=== PATIENT | female | born 1945 | race Caucasian/White ===

== ENCOUNTER 2016-10-27 08:20 | Inpatient (IN) | payer MEDICARE ==
[2016-10-25 15:39] LABS: BLOOD UREA NITROGEN 23 mg/dL (7-18)
[2016-10-25 15:42] LABS: ASPARTATE AMINO TRANSFERASE 13 U/L (15-37)
[~2016-10-27] VITALS: Ht 168.9 cm; Wt 81.9 kg
[~2016-10-27 08:20] MED LIST: ACET-1600 PO; BIOT10TA PO; BIOT1CAP3 PO; CALC1CAP8 PO; CEFD300C37 PO; CELE200C PO; ESCI20TA PO; GABA300C10 PO; LEVO88TA4 PO; LISI-167 PO; MULT-717 PO; OXYC5TAB3 PO; PANT40TA5 PO; PIOG15TA4 PO; SIMV10TA3 PO; TRAM-28 PO; TRAM50TA2 PO; TURM500C7 PO; ZINC100T PO
[2016-10-27 08:56] VITALS: BP 102/65
[2016-10-27] MEDS ORDERED: LACTATED RINGERS 1,000 ML IV SCH (09:01)
[2016-10-27] MEDS ORDERED: LIDOCAINE 1%, 2ML ONE (09:09)
[2016-10-27] MEDS ORDERED: LIDOCAINE 1%, 2ML SQ PRN (09:30)
[2016-10-27] MEDS ORDERED: ENOXAPARIN 40 MG/0.4 ML SQ SCH (09:30)
[2016-10-27] MEDS ORDERED: INDOCYANINE GREEN 25 MG VIAL ONE (11:05)
[2016-10-27] MEDS ORDERED: BUPIVACAINE/PF-EPI 0.5% 1:200K ONE (11:05)
[2016-10-27] MEDS ORDERED: MIDAZOLAM 1 MG/ML, 2ML ONE (11:07)
[2016-10-27] MEDS ORDERED: BUPIVACAINE/PF-EPI 0.25% 1:200K ONE (11:07)
[2016-10-27] MEDS ORDERED: FENTANYL PF 250 MCG/5ML ONE (11:07)
[2016-10-27] MEDS ORDERED: BUPIVACAINE/PF 0.25% ONE (11:08)
[2016-10-27] MEDS ORDERED: BUPIVACAINE/PF 0.5% ONE (11:10)
[2016-10-27] MEDS ORDERED: KETOROLAC 30 MG/1 ML ONE (11:41)
[2016-10-27] MEDS ORDERED: ONDANSETRON 2MG/ML, 2ML ONE (11:41)
[2016-10-27] MEDS ORDERED: ROCURONIUM 10 MG/ML ONE (11:41)
[2016-10-27] MEDS ORDERED: DEXAMETHASONE 4 MG/ML, 5ML ONE (11:41)
[2016-10-27] MEDS ORDERED: KETAMINE 10 MG/ML, 20ML ONE (11:41)
[2016-10-27] MEDS ORDERED: PHENYLEPHRINE 10 MG/ML ONE ×2 (11:41)
[2016-10-27] MEDS ORDERED: PROPOFOL 10 MG/ML, 20ML ONE (11:41)
[2016-10-27] MEDS ORDERED: CEFOTETAN 2 GM ONE ×2 (11:41)
[2016-10-27] MEDS ORDERED: MEPERIDINE/PF 25MG/0.5ML IVPush PRN (12:30)
[2016-10-27] MEDS ORDERED: PROMETHAZINE 25 MG/ML, 1ML IV PRN (12:30)
[2016-10-27] MEDS ORDERED: hydrALAzine 20 MG/ML, 1ML IV PRN (12:30)
[2016-10-27] MEDS ORDERED: LABETALOL 5MG/ML, 20ML IV PRN (12:30)
[2016-10-27] MEDS ORDERED: ONDANSETRON 2MG/ML, 2ML IVPush PRN (12:30)
[2016-10-27] MEDS ORDERED: FENTANYL PF 100 MCG/2ML IV PRN (12:30)
[2016-10-27] MEDS ORDERED: ACETAMINOPHEN 325 MG TABLET PO PRN (12:30)
[2016-10-27] MEDS ORDERED: HYDROmorphone 1 MG/ML, 1ML IV PRN (12:30)
[2016-10-27] MEDS ORDERED: HYDROmorphone 2 MG/ML, 1ML ONE ×2 (13:16→16:36)
[2016-10-27] MEDS ORDERED: INSULIN REGULAR 100 UNITS/ML, 3ML VIAL SQ-INSULIN SCH (16:00)
[2016-10-27] MEDS ORDERED: ACETAMINOPHEN 650 MG/20.3 ML UDC ONE (16:36)
[2016-10-27] MEDS ORDERED: FENTANYL PF 100 MCG/2ML ONE (16:36)
[2016-10-27] MEDS ORDERED: OXYcodone 5 MG/5 ML ORAL.SOL UDC ONE (16:37)
[2016-10-27] MEDS ORDERED: DIPHENHYDRAMINE 50 MG/ML, 1ML IV PRN (19:00)
[2016-10-27] MEDS ORDERED: DIPHENHYDRAMINE 25 MG CAPSULE PO PRN (19:00)
[2016-10-27] MEDS ORDERED: ENTER SLIDING SCALE INSULIN IF ORDERED XX PRN (19:00)
[2016-10-27] MEDS ORDERED: ONDANSETRON 2MG/ML, 2ML IV PRN (19:00)
[2016-10-27] MEDS: POTASSIUM CHLORIDE 20 MEQ in D5%-0.45% NACL 1,000 ML IV SCH (19:00)
[2016-10-27] MEDS ORDERED: OXYcodone 5 MG/5 ML ORAL.SOL UDC PO PRN (19:30)
[2016-10-27] MEDS ORDERED: LORazepam 2 MG/ML, 1ML IV PRN (19:30)
[2016-10-27] MEDS ORDERED: LORazepam 1MG TABLET PO PRN (19:30)
[2016-10-27 20:32] VITALS: BP 131/61
[2016-10-27] MEDS: PIPERACILLIN/TAZO 3.375 GM in SODIUM CHLORIDE 0.9% 50 ML IV SCH (22:21)
[2016-10-27] MEDS: GABAPENTIN 300 MG CAPSULE PO SCH (23:50)
[2016-10-27] MEDS: SIMVASTATIN 10 MG TABLET PO SCH (23:50)
[2016-10-27] MEDS: HYDROmorphone 1 MG/ML, 1ML IV PRN (23:54)
[2016-10-28] MEDS: IBUPROFEN 600 MG TABLET PO SCH ×4 (00:05→21:38)
[2016-10-28] MEDS: INSULIN REGULAR, HUMAN 100 UNIT/ML 3ML VIAL LOW DOSE SS SQ-INSULIN SCH ×5 (00:06→20:30)
[2016-10-28 00:24] VITALS: BP 154/109
[2016-10-28] MEDS: PIPERACILLIN/TAZO 3.375 GM in SODIUM CHLORIDE 0.9% 50 ML IV SCH ×4 (01:54→20:09)
[2016-10-28] MEDS: OXYcodone 5 MG/5 ML ORAL.SOL UDC PO PRN ×3 (01:55→13:58)
[2016-10-28 05:16] VITALS: BP 133/64
[2016-10-28 05:23] LABS: BLOOD UREA NITROGEN 31 mg/dL (7-18)
[2016-10-28 06:30] VITALS: BP 125/58
[2016-10-28] MEDS: LEVOTHYROXINE 88 MCG TABLET PO SCH (06:36)
[2016-10-28] MEDS: PANTOPROZOLE 40MG TABLET PO SCH (07:45)
[2016-10-28] MEDS: HYDROmorphone 1 MG/ML, 1ML IV PRN (08:12)
[2016-10-28] MEDS: POTASSIUM CHLORIDE 20 MEQ in D5%-0.45% NACL 1,000 ML IV SCH ×2 (08:28→21:56)
[2016-10-28] MEDS: GABAPENTIN 300 MG CAPSULE PO SCH ×2 (11:45→21:38)
[2016-10-28] MEDS: CITALOPRAM 20 MG TABLET PO SCH (11:45)
[2016-10-28] MEDS: ENOXAPARIN 30 MG/0.3 ML SQ SCH (11:50)
[2016-10-28 13:03] VITALS: BP 118/52
[2016-10-28 18:25] VITALS: BP 113/58
[2016-10-28] MEDS: SIMVASTATIN 10 MG TABLET PO SCH (21:38)
[2016-10-29 02:04] VITALS: BP 96/55
[2016-10-29] MEDS: INSULIN REGULAR, HUMAN 100 UNIT/ML 3ML VIAL LOW DOSE SS SQ-INSULIN SCH ×4 (02:30→20:30)
[2016-10-29] MEDS: PIPERACILLIN/TAZO 3.375 GM in SODIUM CHLORIDE 0.9% 50 ML IV SCH ×4 (03:00→20:32)
[2016-10-29 05:07] LABS: BLOOD UREA NITROGEN 35 mg/dL (7-18)
[2016-10-29] MEDS: LEVOTHYROXINE 88 MCG TABLET PO SCH (06:28)
[2016-10-29 08:08] VITALS: BP 117/66
[2016-10-29] MEDS: ENOXAPARIN 30 MG/0.3 ML SQ SCH (08:14)
[2016-10-29] MEDS ORDERED: FLUCONAZOLE 200 MG/100 ML 100 ML IV SCH (09:00)
[2016-10-29] MEDS: GABAPENTIN 300 MG CAPSULE PO SCH ×2 (09:12→23:46)
[2016-10-29] MEDS: CITALOPRAM 20 MG TABLET PO SCH (09:13)
[2016-10-29] MEDS: IBUPROFEN 600 MG TABLET PO SCH ×3 (09:13→23:46)
[2016-10-29] MEDS: PANTOPROZOLE 40MG TABLET PO SCH (09:22)
[2016-10-29] MEDS: POTASSIUM CHLORIDE 20 MEQ in D5%-0.45% NACL 1,000 ML IV SCH (11:57)
[2016-10-29 12:58] VITALS: BP 125/71
[2016-10-29] MEDS: ACETAMINOPHEN 500 MG TABLET PO PRN (19:39)
[2016-10-29] MEDS: SIMVASTATIN 10 MG TABLET PO SCH (23:49)
[2016-10-30] MEDS: POTASSIUM CHLORIDE 20 MEQ in D5%-0.45% NACL 1,000 ML IV SCH ×2 (00:52→13:34)
[2016-10-30 02:00] VITALS: BP 125/73
[2016-10-30] MEDS: PIPERACILLIN/TAZO 3.375 GM in SODIUM CHLORIDE 0.9% 50 ML IV SCH ×3 (02:30→14:00)
[2016-10-30] MEDS: INSULIN REGULAR, HUMAN 100 UNIT/ML 3ML VIAL LOW DOSE SS SQ-INSULIN SCH ×4 (02:30→20:30)
[2016-10-30 04:29] VITALS: BP 121/68
[2016-10-30] MEDS: ACETAMINOPHEN 500 MG TABLET PO PRN ×2 (05:40→23:28)
[2016-10-30 05:56] LABS: BLOOD UREA NITROGEN 47 mg/dL (7-18)
[2016-10-30] MEDS: LEVOTHYROXINE 88 MCG TABLET PO SCH (06:24)
[2016-10-30 08:13] VITALS: BP 102/55
[2016-10-30] MEDS: GABAPENTIN 300 MG CAPSULE PO SCH ×2 (09:00→20:48)
[2016-10-30] MEDS: IBUPROFEN 600 MG TABLET PO SCH ×3 (09:20→20:48)
[2016-10-30] MEDS: CITALOPRAM 20 MG TABLET PO SCH (09:20)
[2016-10-30] MEDS: PANTOPROZOLE 40MG TABLET PO SCH (09:20)
[2016-10-30] MEDS ORDERED: FLUCONAZOLE 200 MG/100 ML 50 ML IV SCH (12:00)
[2016-10-30 13:01] VITALS: BP 125/59
[2016-10-30] MEDS: FLUCONAZOLE 100MG/50ML 100 MG in BAG 1 EACH IVPB SCH (13:34)
[2016-10-30] MEDS: PIPERACILLIN/TAZO(ZOSYN) 2.25 GM in NS 50 ML IVPB SCH ×2 (15:21→23:08)
[2016-10-30 19:30] VITALS: BP 106/51
[2016-10-30] MEDS: SIMVASTATIN 10 MG TABLET PO SCH (20:48)
[2016-10-31] MEDS: POTASSIUM CHLORIDE 20 MEQ in D5%-0.45% NACL 1,000 ML IV SCH ×3 (01:54→22:01)
[2016-10-31] MEDS: INSULIN REGULAR, HUMAN 100 UNIT/ML 3ML VIAL LOW DOSE SS SQ-INSULIN SCH ×3 (02:30→14:30)
[2016-10-31 03:12] VITALS: BP 112/58
[2016-10-31] MEDS: PIPERACILLIN/TAZO(ZOSYN) 2.25 GM in NS 50 ML IVPB SCH ×4 (05:18→23:16)
[2016-10-31 05:52] LABS: BLOOD UREA NITROGEN 44 mg/dL (7-18)
[2016-10-31] MEDS: LEVOTHYROXINE 88 MCG TABLET PO SCH (06:22)
[2016-10-31] MEDS: ACETAMINOPHEN 500 MG TABLET PO PRN ×2 (06:28→23:16)
[2016-10-31 06:56] VITALS: BP 130/68
[2016-10-31] MEDS: PANTOPROZOLE 40MG TABLET PO SCH (08:06)
[2016-10-31] MEDS: GABAPENTIN 300 MG CAPSULE PO SCH ×2 (09:39→22:33)
[2016-10-31] MEDS: IBUPROFEN 600 MG TABLET PO SCH ×3 (09:39→21:00)
[2016-10-31] MEDS: CITALOPRAM 20 MG TABLET PO SCH (09:39)
[2016-10-31] MEDS: FLUCONAZOLE 100MG/50ML 100 MG in BAG 1 EACH IVPB SCH (12:00)
[2016-10-31 14:36] VITALS: BP 144/62
[2016-10-31] MEDS: INSULIN REGULAR 100 UNITS/ML, 3ML VIAL SQ-INSULIN SCH ×2 (16:00→23:23)
[2016-10-31 20:26] VITALS: BP 143/69
[2016-10-31] MEDS: SIMVASTATIN 10 MG TABLET PO SCH (22:33)
[2016-11-01 02:20] VITALS: BP 138/71
[2016-11-01] MEDS: PIPERACILLIN/TAZO(ZOSYN) 2.25 GM in NS 50 ML IVPB SCH ×4 (05:21→23:39)
[2016-11-01] MEDS: ACETAMINOPHEN 500 MG TABLET PO PRN ×3 (05:23→21:10)
[2016-11-01 05:50] LABS: BLOOD UREA NITROGEN 39 mg/dL (7-18)
[2016-11-01] MEDS: LEVOTHYROXINE 88 MCG TABLET PO SCH (06:42)
[2016-11-01] MEDS: INSULIN REGULAR 100 UNITS/ML, 3ML VIAL SQ-INSULIN SCH (06:45)
[2016-11-01 07:17] VITALS: BP 137/73
[2016-11-01] MEDS: PANTOPROZOLE 40MG TABLET PO SCH (07:30)
[2016-11-01] MEDS: GABAPENTIN 300 MG CAPSULE PO SCH ×2 (08:42→21:10)
[2016-11-01] MEDS: CITALOPRAM 20 MG TABLET PO SCH (08:42)
[2016-11-01] MEDS: IBUPROFEN 600 MG TABLET PO SCH ×3 (08:43→21:00)
[2016-11-01] MEDS: FLUCONAZOLE 100MG/50ML 100 MG in BAG 1 EACH IVPB SCH (12:28)
[2016-11-01 14:30] VITALS: BP 168/80
[2016-11-01] MEDS: POTASSIUM CHLORIDE 20 MEQ in D5%-0.45% NACL 1,000 ML IV SCH (17:21)
[2016-11-01 19:05] VITALS: BP 143/69
[2016-11-01] MEDS: SIMVASTATIN 10 MG TABLET PO SCH (21:10)
[2016-11-02 00:56] VITALS: BP 157/77
[2016-11-02] MEDS: POTASSIUM CHLORIDE 20 MEQ in D5%-0.45% NACL 1,000 ML IV SCH (01:44)
[2016-11-02] MEDS: ACETAMINOPHEN 500 MG TABLET PO PRN ×3 (04:01→20:45)
[2016-11-02 06:17] LABS: BLOOD UREA NITROGEN 27 mg/dL (7-18)
[2016-11-02] MEDS: LEVOTHYROXINE 88 MCG TABLET PO SCH (06:44)
[2016-11-02] MEDS: PIPERACILLIN/TAZO(ZOSYN) 2.25 GM in NS 50 ML IVPB SCH ×3 (06:44→19:37)
[2016-11-02 07:58] VITALS: BP 134/74
[2016-11-02] MEDS: CITALOPRAM 20 MG TABLET PO SCH (08:53)
[2016-11-02] MEDS: PANTOPROZOLE 40MG TABLET PO SCH (08:54)
[2016-11-02] MEDS: GABAPENTIN 300 MG CAPSULE PO SCH ×2 (08:54→20:45)
[2016-11-02] MEDS: IBUPROFEN 600 MG TABLET PO SCH ×3 (09:00→20:40)
[2016-11-02] MEDS ORDERED: TRAM-28 PO (09:38)
[2016-11-02] MEDS ORDERED: AMOX1TAB64 PO (09:38)
[2016-11-02] MEDS: SODIUM CHLORIDE FLUSH 3ML SYRINGE IVF SCH ×2 (11:38→20:40)
[2016-11-02] MEDS: FLUCONAZOLE 100MG/50ML 100 MG in BAG 1 EACH IVPB SCH (12:09)
[2016-11-02 16:14] VITALS: BP 132/72
[2016-11-02 20:34] VITALS: BP 115/71
[2016-11-02] MEDS: SIMVASTATIN 10 MG TABLET PO SCH (20:45)
[2016-11-03] MEDS: PIPERACILLIN/TAZO(ZOSYN) 2.25 GM in NS 50 ML IVPB SCH (01:45)
[2016-11-03 02:58] VITALS: BP 134/65
[2016-11-03] MEDS: LEVOTHYROXINE 88 MCG TABLET PO SCH (05:42)
[2016-11-03 07:49] VITALS: BP 140/75
[2016-11-03] MEDS: SODIUM CHLORIDE FLUSH 3ML SYRINGE IVF SCH (08:16)
[2016-11-03] MEDS: PANTOPROZOLE 40MG TABLET PO SCH (08:17)
[2016-11-03] MEDS: ACETAMINOPHEN 500 MG TABLET PO PRN (08:17)
[2016-11-03] MEDS: IBUPROFEN 600 MG TABLET PO SCH (08:17)
[2016-11-03] MEDS: GABAPENTIN 300 MG CAPSULE PO SCH (08:17)
[2016-11-03] MEDS: CITALOPRAM 20 MG TABLET PO SCH (08:17)
[2016-11-03] MEDS: FLUCONAZOLE 100MG/50ML 100 MG in BAG 1 EACH IVPB SCH (12:00)
[2016-11-03 12:58] VITALS: BP 128/64
[2016-11-18] MEDS ORDERED: GABA600T2 PO (17:55)
[2016-11-18] MEDS ORDERED: ACET-1600 PO (17:55)
[2016-11-18] MEDS ORDERED: CELE200C PO (17:55)
[2016-11-18] MEDS ORDERED: GABA300C10 PO (17:55)
[2016-11-18] MEDS ORDERED: ZINC25LO PO (17:55)
[2016-11-23] MEDS ORDERED: CHOL400T2 PO (14:02)
[2016-11-23] MEDS ORDERED: FERR325T20 PO (14:02)
[2016-11-23] MEDS ORDERED: CEFD300C37 PO (14:02)
[2016-11-23] MEDS ORDERED: TRAM50TA2 PO (14:02)
[2016-11-23] MEDS ORDERED: METR500T PO (14:02)
[2016-11-23] MEDS ORDERED: LACT1CAP24 PO (14:11)
[2016-11-23] MEDS ORDERED: MAGN400T26 PO (14:15)
== END 2016-11-03 14:10 | disposition home health service (06) | DRG 333 ==
LOC: ORIP 08:20 → 4NOR 18:46 → DCLOUNGE 11-03 13:39
PROVIDERS: ADMIT Surgery; ATTEND Surgery
PROC: 07BB4ZZ Excision of Mesenteric Lymphatic, Percutaneous Endoscopic Approach (ICD-10-PCS; 2016-10-27)
PROC: 8E0W3CZ Robotic Assisted Procedure of Trunk Region, Percutaneous Approach (ICD-10-PCS; 2016-10-27)
PROC: 0T778DZ Dilation of Left Ureter with Intraluminal Device, Via Natural or Artificial Opening Endoscopic (ICD-10-PCS; principal; 2016-10-27 10:00)
PROC: 0DBP4ZZ Excision of Rectum, Percutaneous Endoscopic Approach (ICD-10-PCS; 2016-10-27 10:00)
DX: K57.20 Diverticulitis of large intestine with perforation and abscess without bleeding (principal); N32.1 Vesicointestinal fistula; E03.9 Hypothyroidism, unspecified; I10 Essential (primary) hypertension; K21.9 Gastro-esophageal reflux disease without esophagitis; E11.40 Type 2 diabetes mellitus with diabetic neuropathy, unspecified; E78.00 Pure hypercholesterolemia, unspecified; Z90.49 Acquired absence of other specified parts of digestive tract; Z90.710 Acquired absence of both cervix and uterus; Z88.8 Allergy status to other drugs, medicaments and biological substances; Z85.118 Personal history of other malignant neoplasm of bronchus and lung
CPT/HCPCS: 36415; 80048; 80053; 82040; 82962; 83036; 85014; 85018; 85025; 86850; 86900; 87070; 87075; 87077; 87102; 87106; 87186; 87205; 87324; 88304; 88307; 93005; C1729; J1100; J1170; J1650; J1815; J1885; J2250; J2405; J2543; J2704; J3010; J3480; J3490; C1758; C1760; J1450; J2370; S0074

== ENCOUNTER 2017-09-03 14:18 | Emergency (ER) | payer MEDICARE ==
[~2017-09-03] VITALS: Ht 167.6 cm; Wt 82.0 kg
[~2017-09-03 14:18] MED LIST changes: +AMOX1TAB64 PO; +CHOL400T2 PO; +FERR325T18 PO; +GABA600T2 PO; +LACT1CAP24 PO; +MAGN400T26 PO; +METR500T PO; -TRAM-28 PO; +TRAM-47 PO; +ZINC25LO PO
[2017-09-03] MEDS ORDERED: PANTOPRAZOLE 80 MG in SODIUM CHLORIDE 0.9% 50 ML IVPB ONE (14:42)
[2017-09-03] MEDS ORDERED: PANTOPRAZOLE 80 MG in SODIUM CHLORIDE 0.9% 100 ML IV SCH (14:42)
[2017-09-03] MEDS ORDERED: ONDANSETRON 2MG/ML, 2ML IVPush PRN (15:00)
[2017-09-03] MEDS ORDERED: HYDROcodone/APAP 5/325 TABLET ONE (15:19)
[2017-09-03 15:25] LABS: BASOPHILS # (AUTO) 0.04 x10^3/uL (0-0.1); BASOPHILS % (AUTO) 0 % (0-1); EOSINOPHILS # (AUTO) 0.08 x10^3/uL (0-0.4); EOSINOPHILS % (AUTO) 1 % (1-7); LYMPHOCYTES # (AUTO) 1.36 x10^3/uL (1-3.4); LYMPHOCYTES % (AUTO) 14 % (22-44); MD NO; MEAN CORPUSCULAR HGB CONC 32.9 g/dL (32.4-35.8); MEAN CORPUSCULAR VOLUME 97.2 fL (80-100); MONOCYTES # (AUTO) 0.55 x10^3/uL (0.2-0.8); MONOCYTES % (AUTO) 6 % (2-9); NEUTROPHILS # (AUTO) 7.42 x10^3/uL (1.8-6.8); NEUTROPHILS % (AUTO) 79 % (42-75); PLATELET COUNT 284 x10^3/uL (130-400); RED BLOOD COUNT 3.86 x10^6/uL (3.82-5.3); RED CELL DISTRIBUTION WIDTH 13.3 % (9.6-15.2)
[2017-09-03] MEDS ORDERED: HYDROcodone/APAP 5/325 TABLET PO ONE (15:30)
[2017-09-03 15:32] LABS: ANION GAP 8 mmol/L (5-15); CALCIUM 9.5 mg/dL (8.5-10.1); CHLORIDE 107 mmol/L (98-107)
[2017-09-03] MEDS ORDERED: DIAZEPAM 5 MG TABLET PO ONE (16:00)
[2017-09-03] MEDS ORDERED: DIAZEPAM 5 MG TABLET ONE (16:03)
[2017-09-03] MEDS ORDERED: DEXAMETHASONE 4 MG TABLET ONE (17:51)
[2017-09-03 17:57] VITALS: BP 140/70
[2017-09-03] MEDS ORDERED: DEXAMETHASONE 4 MG/ML, 1ML PO ONE (18:00)
[2017-09-03 18:01] LABS: MICROSCOPIC NOT IND
[2017-09-03 18:04] LABS: CULTURE INDICATED? NO
== END 2017-09-03 18:01 | disposition home or self-care (01) ==
LOC: ED 17:04
DX: M54.41 Lumbago with sciatica, right side (principal); M51.26 Other intervertebral disc displacement, lumbar region; C34.90 Malignant neoplasm of unspecified part of unspecified bronchus or lung; I10 Essential (primary) hypertension; M54.16 Radiculopathy, lumbar region
CPT/HCPCS: 36415; 72148; 80048; 81003; 85025; 99285; J1100

== ENCOUNTER 2017-09-20 16:41 | Inpatient (IN) | payer MEDICARE ==
[~2017-09-20] VITALS: Ht 172.7 cm; Wt 90.0 kg
[2017-09-20] MEDS: ENOXAPARIN 40 MG/0.4 ML SQ SCH (17:30)
[2017-09-20] MEDS ORDERED: hydrALAzine 20 MG/ML, 1ML IVPush PRN (17:30)
[2017-09-20] MEDS ORDERED: LABETALOL 5MG/ML, 20ML IVPush PRN (17:30)
[2017-09-20 17:56] LABS: BASOPHILS # (AUTO) 0.01 x10^3/uL (0-0.1); BASOPHILS % (AUTO) 0 % (0-1); EOSINOPHILS # (AUTO) 0.04 x10^3/uL (0-0.4); EOSINOPHILS % (AUTO) 0 % (1-7); LYMPHOCYTES # (AUTO) 1.31 x10^3/uL (1-3.4); LYMPHOCYTES % (AUTO) 11 % (22-44); MD NO; MEAN CORPUSCULAR HEMOGLOBIN 32.9 pg (27.0-34.8); MEAN CORPUSCULAR HGB CONC 33.7 g/dL (32.4-35.8); MEAN CORPUSCULAR VOLUME 97.4 fL (80-100); MEAN PLATELET VOLUME 8.6 fL (7.4-10.4); MONOCYTES # (AUTO) 0.61 x10^3/uL (0.2-0.8); MONOCYTES % (AUTO) 5 % (2-9); NEUTROPHILS # (AUTO) 9.52 x10^3/uL (1.8-6.8); NEUTROPHILS % (AUTO) 83 % (42-75); PLATELET COUNT 221 x10^3/uL (130-400); RED BLOOD COUNT 4.21 x10^6/uL (3.82-5.3); RED CELL DISTRIBUTION WIDTH 13.3 % (9.6-15.2)
[2017-09-20] MEDS ORDERED: ACETAMINOPHEN 325 MG TABLET PO PRN (18:00)
[2017-09-20] MEDS ORDERED: METHOCARBAMOL 750 MG TABLET PO ONE (18:00)
[2017-09-20] MEDS ORDERED: SODIUM CHLORIDE FLUSH 10ML SYR IVF ONE (18:00)
[2017-09-20 18:06] LABS: ALBUMIN 4.6 g/dL (3.4-5.0); ANION GAP 11 mmol/L (5-15); CHLORIDE 106 mmol/L (98-107); CREATININE 1.22 mg/dL (0.55-1.02)
[2017-09-20 19:32] VITALS: BP 140/77
[2017-09-20] MEDS: MAGNESIUM OXIDE 400 MG TABLET PO SCH (20:48)
[2017-09-20] MEDS: CALCIUM/VITAMIN D3 250-125 TABLET PO SCH (20:48)
[2017-09-20] MEDS: CHOLECALCIFEROL 400 UNITS TABLET PO SCH (20:48)
[2017-09-20] MEDS: SIMVASTATIN 10 MG TABLET PO SCH (20:48)
[2017-09-20] MEDS: LACTOBACILLUS CHEW TABLET PO SCH (20:48)
[2017-09-21 01:33] VITALS: BP 114/67
[2017-09-21] MEDS: LEVOTHYROXINE 88 MCG TABLET PO SCH (05:04)
[2017-09-21 05:17] LABS: BASOPHILS # (AUTO) 0.03 x10^3/uL (0-0.1); BASOPHILS % (AUTO) 0 % (0-1); EOSINOPHILS % (AUTO) 1 % (1-7); LYMPHOCYTES # (AUTO) 2.33 x10^3/uL (1-3.4); LYMPHOCYTES % (AUTO) 24 % (22-44); MD NO; MEAN CORPUSCULAR HEMOGLOBIN 32.6 pg (27.0-34.8); MEAN CORPUSCULAR HGB CONC 33.6 g/dL (32.4-35.8); MEAN CORPUSCULAR VOLUME 96.8 fL (80-100); MEAN PLATELET VOLUME 8.8 fL (7.4-10.4); MONOCYTES % (AUTO) 9 % (2-9); NEUTROPHILS # (AUTO) 6.24 x10^3/uL (1.8-6.8); NEUTROPHILS % (AUTO) 65 % (42-75); PLATELET COUNT 230 x10^3/uL (130-400); RED BLOOD COUNT 4.06 x10^6/uL (3.82-5.3); RED CELL DISTRIBUTION WIDTH 13.4 % (9.6-15.2)
[2017-09-21 05:24] LABS: ANION GAP 6 mmol/L (5-15); CALCIUM 10.2 mg/dL (8.5-10.1); CHLORIDE 106 mmol/L (98-107); CREATININE 1.45 mg/dL (0.55-1.02)
[2017-09-21 06:53] VITALS: BP 114/70
[2017-09-21] MEDS: PANTOPROZOLE 40MG TABLET PO SCH (08:08)
[2017-09-21] MEDS: MAGNESIUM OXIDE 400 MG TABLET PO SCH ×2 (08:08→20:34)
[2017-09-21] MEDS: CITALOPRAM 20 MG TABLET PO SCH (08:08)
[2017-09-21] MEDS: LACTOBACILLUS CHEW TABLET PO SCH ×3 (08:08→20:34)
[2017-09-21] MEDS: CHOLECALCIFEROL 400 UNITS TABLET PO SCH ×2 (08:08→20:34)
[2017-09-21] MEDS: CALCIUM/VITAMIN D3 250-125 TABLET PO SCH (08:09)
[2017-09-21] MEDS ORDERED: LISINOPRIL 5 MG TABLET PO SCH (09:00)
[2017-09-21] MEDS ORDERED: GABAPENTIN 300 MG CAPSULE PO SCH (09:00)
[2017-09-21 12:59] VITALS: BP 99/59
[2017-09-21] MEDS: SODIUM CHLORIDE 0.9% 1,000 ML IV SCH (16:39)
[2017-09-21] MEDS: ENOXAPARIN 40 MG/0.4 ML SQ SCH (17:45)
[2017-09-21 18:58] VITALS: BP 135/65
[2017-09-21] MEDS: SIMVASTATIN 10 MG TABLET PO SCH (20:34)
[2017-09-22] MEDS: SODIUM CHLORIDE 0.9% 1,000 ML IV SCH ×3 (00:58→23:04)
[2017-09-22 02:14] VITALS: BP 88/59
[2017-09-22 02:54] VITALS: BP 91/56
[2017-09-22] MEDS: LEVOTHYROXINE 88 MCG TABLET PO SCH (05:02)
[2017-09-22 05:10] LABS: BASOPHILS # (AUTO) 0.01 x10^3/uL (0-0.1); BASOPHILS % (AUTO) 0 % (0-1); EOSINOPHILS # (AUTO) 0.15 x10^3/uL (0-0.4); EOSINOPHILS % (AUTO) 2 % (1-7); LYMPHOCYTES % (AUTO) 25 % (22-44); MD NO; MEAN CORPUSCULAR HEMOGLOBIN 32.1 pg (27.0-34.8); MEAN CORPUSCULAR VOLUME 97.4 fL (80-100); MEAN PLATELET VOLUME 8.9 fL (7.4-10.4); MONOCYTES # (AUTO) 1.01 x10^3/uL (0.2-0.8); MONOCYTES % (AUTO) 10 % (2-9); NEUTROPHILS # (AUTO) 6.48 x10^3/uL (1.8-6.8); NEUTROPHILS % (AUTO) 64 % (42-75); PLATELET COUNT 228 x10^3/uL (130-400); RED BLOOD COUNT 3.85 x10^6/uL (3.82-5.3); RED CELL DISTRIBUTION WIDTH 14.5 % (9.6-15.2)
[2017-09-22 05:20] LABS: ANION GAP 7 mmol/L (5-15); CHLORIDE 105 mmol/L (98-107); CREATININE 2.64 mg/dL (0.55-1.02)
[2017-09-22 07:52] VITALS: BP 139/71
[2017-09-22] MEDS ORDERED: PHARMACY MAY ADJ FOR RENAL FX MC PRN (09:00)
[2017-09-22] MEDS: CITALOPRAM 20 MG TABLET PO SCH (09:23)
[2017-09-22] MEDS: MAGNESIUM OXIDE 400 MG TABLET PO SCH ×2 (09:24→21:15)
[2017-09-22] MEDS: LACTOBACILLUS CHEW TABLET PO SCH ×3 (09:24→21:15)
[2017-09-22] MEDS: GABAPENTIN 300 MG CAPSULE PO SCH ×2 (09:25→21:15)
[2017-09-22] MEDS: PANTOPROZOLE 40MG TABLET PO SCH (09:26)
[2017-09-22] MEDS: CHOLECALCIFEROL 400 UNITS TABLET PO SCH ×2 (09:27→21:15)
[2017-09-22 11:48] LABS: MICROSCOPIC INDICATED
[2017-09-22 12:23] LABS: CULTURE INDICATED? YES
[2017-09-22 12:25] VITALS: BP 132/73
[2017-09-22] MEDS: CEFTRIAXONE PMX 1GM/50ML 50 ML IV SCH (14:39)
[2017-09-22 18:33] LABS: INTERNATIONAL NORMALIZED RATIO 1.08 (0.93-1.1); PROTHROMBIN TIME 11.1 Seconds (9.6-11.5)
[2017-09-22 18:40] VITALS: BP 103/65
[2017-09-23 01:38] VITALS: BP 137/81
[2017-09-23] MEDS: LEVOTHYROXINE 88 MCG TABLET PO SCH (04:42)
[2017-09-23] MEDS: SODIUM CHLORIDE 0.9% 1,000 ML IV SCH ×3 (05:37→20:48)
[2017-09-23 05:54] LABS: BASOPHILS % (AUTO) 0 % (0-1); EOSINOPHILS % (AUTO) 2 % (1-7); LYMPHOCYTES # (AUTO) 1.82 x10^3/uL (1-3.4); LYMPHOCYTES % (AUTO) 20 % (22-44); MD NO; MEAN CORPUSCULAR HEMOGLOBIN 32.8 pg (27.0-34.8); MEAN CORPUSCULAR HGB CONC 33.3 g/dL (32.4-35.8); MEAN CORPUSCULAR VOLUME 98.4 fL (80-100); MEAN PLATELET VOLUME 9.2 fL (7.4-10.4); MONOCYTES # (AUTO) 1.09 x10^3/uL (0.2-0.8); MONOCYTES % (AUTO) 12 % (2-9); NEUTROPHILS # (AUTO) 6.19 x10^3/uL (1.8-6.8); NEUTROPHILS % (AUTO) 67 % (42-75); PLATELET COUNT 196 x10^3/uL (130-400); RED BLOOD COUNT 3.52 x10^6/uL (3.82-5.3); RED CELL DISTRIBUTION WIDTH 13.4 % (9.6-15.2)
[2017-09-23 05:58] LABS: ANION GAP 7 mmol/L (5-15); CALCIUM 9.1 mg/dL (8.5-10.1); CHLORIDE 107 mmol/L (98-107); CREATININE 1.62 mg/dL (0.55-1.02)
[2017-09-23 06:40] VITALS: BP 137/80
[2017-09-23] MEDS: PANTOPROZOLE 40MG TABLET PO SCH (09:42)
[2017-09-23] MEDS: ERGOCALCIFEROL 50,000 UNIT CAPSULE PO SCH (09:42)
[2017-09-23] MEDS: GABAPENTIN 300 MG CAPSULE PO SCH ×2 (09:43→20:48)
[2017-09-23] MEDS: LACTOBACILLUS CHEW TABLET PO SCH ×3 (09:43→20:48)
[2017-09-23] MEDS: CITALOPRAM 20 MG TABLET PO SCH (09:43)
[2017-09-23] MEDS: MAGNESIUM OXIDE 400 MG TABLET PO SCH ×2 (09:44→20:48)
[2017-09-23] MEDS: CEFTRIAXONE PMX 1GM/50ML 50 ML IV SCH (14:41)
[2017-09-23 14:45] VITALS: BP 127/61
[2017-09-23 18:24] VITALS: BP 120/72
[2017-09-24 04:26] VITALS: BP 148/75
[2017-09-24] MEDS: SODIUM CHLORIDE 0.9% 1,000 ML IV SCH ×3 (04:49→12:12)
[2017-09-24] MEDS: LEVOTHYROXINE 88 MCG TABLET PO SCH (05:36)
[2017-09-24 05:53] LABS: BASOPHILS # (AUTO) 0.03 x10^3/uL (0-0.1); BASOPHILS % (AUTO) 0 % (0-1); EOSINOPHILS % (AUTO) 3 % (1-7); LYMPHOCYTES # (AUTO) 1.68 x10^3/uL (1-3.4); LYMPHOCYTES % (AUTO) 23 % (22-44); MD NO; MEAN CORPUSCULAR HEMOGLOBIN 32.5 pg (27.0-34.8); MEAN CORPUSCULAR HGB CONC 33.3 g/dL (32.4-35.8); MEAN CORPUSCULAR VOLUME 97.7 fL (80-100); MEAN PLATELET VOLUME 9.1 fL (7.4-10.4); MONOCYTES % (AUTO) 14 % (2-9); NEUTROPHILS % (AUTO) 60 % (42-75); PLATELET COUNT 206 x10^3/uL (130-400); RED BLOOD COUNT 3.45 x10^6/uL (3.82-5.3); RED CELL DISTRIBUTION WIDTH 13.3 % (9.6-15.2)
[2017-09-24 05:56] LABS: CHLORIDE 109 mmol/L (98-107)
[2017-09-24 06:22] LABS: ALANINE AMINOTRANSFERASE 12 U/L (12-78); ALBUMIN 3.4 g/dL (3.4-5.0); ALKALINE PHOSPHATASE 54 U/L (45-117); ANION GAP 9 mmol/L (5-15); BILIRUBIN,TOTAL 0.8 mg/dL (0.2-1.0); CALCIUM 9.4 mg/dL (8.5-10.1); CREATININE 1.12 mg/dL (0.55-1.02); TOTAL PROTEIN 6.9 g/dL (6.4-8.2)
[2017-09-24 06:46] VITALS: BP 145/66
[2017-09-24] MEDS: LACTOBACILLUS CHEW TABLET PO SCH ×3 (09:31→22:03)
[2017-09-24] MEDS: CITALOPRAM 20 MG TABLET PO SCH (09:31)
[2017-09-24] MEDS: PANTOPROZOLE 40MG TABLET PO SCH (09:31)
[2017-09-24] MEDS: GABAPENTIN 300 MG CAPSULE PO SCH ×2 (09:31→22:03)
[2017-09-24] MEDS: MAGNESIUM OXIDE 400 MG TABLET PO SCH ×2 (09:34→22:03)
[2017-09-24 13:10] VITALS: BP 125/65
[2017-09-24] MEDS: CEFTRIAXONE PMX 1GM/50ML 50 ML IV SCH (14:43)
[2017-09-24] MEDS ORDERED: ENOXAPARIN 30 MG/0.3 ML SQ SCH (16:00)
[2017-09-24] MEDS ORDERED: MAGNESIUM SULFATE PMX 4GM/100M 100 ML IV ONE (16:00)
[2017-09-24] MEDS ORDERED: POTASSIUM PHOSPHATE 44 MEQ in SODIUM CHLORIDE 0.9% 500 ML IV ONE (16:00)
[2017-09-24 19:56] VITALS: BP 129/77
[2017-09-25 01:58] VITALS: BP 125/73
[2017-09-25 05:41] LABS: ALANINE AMINOTRANSFERASE 12 U/L (12-78); ALBUMIN 3.3 g/dL (3.4-5.0); ANION GAP 7 mmol/L (5-15); CALCIUM 9.2 mg/dL (8.5-10.1); CHLORIDE 109 mmol/L (98-107); CREATININE 1.04 mg/dL (0.55-1.02)
[2017-09-25 05:43] LABS: ALKALINE PHOSPHATASE 63 U/L (45-117); BILIRUBIN,TOTAL 0.4 mg/dL (0.2-1.0); TOTAL PROTEIN 7.2 g/dL (6.4-8.2)
[2017-09-25] MEDS: LEVOTHYROXINE 88 MCG TABLET PO SCH (06:26)
[2017-09-25 07:05] VITALS: BP 142/71
[2017-09-25] MEDS: PANTOPROZOLE 40MG TABLET PO SCH (08:13)
[2017-09-25] MEDS: LACTOBACILLUS CHEW TABLET PO SCH ×3 (08:13→22:25)
[2017-09-25] MEDS: GABAPENTIN 300 MG CAPSULE PO SCH ×2 (08:13→22:25)
[2017-09-25] MEDS: CITALOPRAM 20 MG TABLET PO SCH (08:13)
[2017-09-25] MEDS: MAGNESIUM OXIDE 400 MG TABLET PO SCH ×2 (08:14→22:25)
[2017-09-25] MEDS: SODIUM CHLORIDE 0.9% 1,000 ML IV SCH ×3 (10:04→17:55)
[2017-09-25 12:33] VITALS: BP 123/61
[2017-09-25] MEDS: CEFTRIAXONE PMX 1GM/50ML 50 ML IV SCH (14:03)
[2017-09-25] MEDS: ENOXAPARIN 40 MG/0.4 ML SQ SCH (15:34)
[2017-09-25 20:07] VITALS: BP 124/60
[2017-09-26] MEDS: SODIUM CHLORIDE 0.9% 1,000 ML IV SCH ×4 (00:01→21:18)
[2017-09-26 01:09] VITALS: BP 134/69
[2017-09-26 05:38] LABS: BASOPHILS # (AUTO) 0.02 x10^3/uL (0-0.1); BASOPHILS % (AUTO) 0 % (0-1); EOSINOPHILS # (AUTO) 0.19 x10^3/uL (0-0.4); EOSINOPHILS % (AUTO) 2 % (1-7); LYMPHOCYTES % (AUTO) 24 % (22-44); MD NO; MEAN CORPUSCULAR HEMOGLOBIN 32.4 pg (27.0-34.8); MEAN CORPUSCULAR HGB CONC 33.5 g/dL (32.4-35.8); MEAN CORPUSCULAR VOLUME 96.8 fL (80-100); MEAN PLATELET VOLUME 8.7 fL (7.4-10.4); MONOCYTES # (AUTO) 1.01 x10^3/uL (0.2-0.8); MONOCYTES % (AUTO) 13 % (2-9); NEUTROPHILS # (AUTO) 4.84 x10^3/uL (1.8-6.8); NEUTROPHILS % (AUTO) 61 % (42-75); PLATELET COUNT 243 x10^3/uL (130-400); RED BLOOD COUNT 3.31 x10^6/uL (3.82-5.3); RED CELL DISTRIBUTION WIDTH 13.3 % (9.6-15.2)
[2017-09-26 05:50] LABS: CHLORIDE 107 mmol/L (98-107)
[2017-09-26 05:59] LABS: ALANINE AMINOTRANSFERASE 13 U/L (12-78); ALBUMIN 3.3 g/dL (3.4-5.0); ALKALINE PHOSPHATASE 61 U/L (45-117); ANION GAP 7 mmol/L (5-15); BILIRUBIN,TOTAL 0.7 mg/dL (0.2-1.0); TOTAL PROTEIN 6.9 g/dL (6.4-8.2)
[2017-09-26] MEDS: LEVOTHYROXINE 88 MCG TABLET PO SCH (06:22)
[2017-09-26 07:51] VITALS: BP 178/65
[2017-09-26] MEDS: LACTOBACILLUS CHEW TABLET PO SCH ×3 (08:09→21:18)
[2017-09-26] MEDS: GABAPENTIN 300 MG CAPSULE PO SCH ×2 (08:09→21:18)
[2017-09-26] MEDS: PANTOPROZOLE 40MG TABLET PO SCH (08:09)
[2017-09-26] MEDS: CITALOPRAM 20 MG TABLET PO SCH (08:09)
[2017-09-26] MEDS: MAGNESIUM OXIDE 400 MG TABLET PO SCH ×2 (08:09→21:18)
[2017-09-26 08:53] VITALS: BP 146/67
[2017-09-26 12:14] VITALS: BP 120/70
[2017-09-26] MEDS: CEFTRIAXONE PMX 1GM/50ML 50 ML IV SCH (14:16)
[2017-09-26] MEDS: ENOXAPARIN 40 MG/0.4 ML SQ SCH (15:27)
[2017-09-26 20:37] VITALS: BP 151/67
[2017-09-27 01:44] VITALS: BP 115/75
[2017-09-27] MEDS: SODIUM CHLORIDE 0.9% 1,000 ML IV SCH ×4 (04:11→22:24)
[2017-09-27 05:19] LABS: BASOPHILS # (AUTO) 0.03 x10^3/uL (0-0.1); BASOPHILS % (AUTO) 1 % (0-1); EOSINOPHILS # (AUTO) 0.24 x10^3/uL (0-0.4); EOSINOPHILS % (AUTO) 3 % (1-7); LYMPHOCYTES # (AUTO) 1.59 x10^3/uL (1-3.4); LYMPHOCYTES % (AUTO) 21 % (22-44); MD NO; MEAN CORPUSCULAR HEMOGLOBIN 32.6 pg (27.0-34.8); MEAN CORPUSCULAR HGB CONC 33.6 g/dL (32.4-35.8); MEAN PLATELET VOLUME 8.5 fL (7.4-10.4); MONOCYTES # (AUTO) 0.91 x10^3/uL (0.2-0.8); MONOCYTES % (AUTO) 12 % (2-9); NEUTROPHILS # (AUTO) 4.86 x10^3/uL (1.8-6.8); NEUTROPHILS % (AUTO) 64 % (42-75); PLATELET COUNT 257 x10^3/uL (130-400); RED CELL DISTRIBUTION WIDTH 13.4 % (9.6-15.2)
[2017-09-27 05:25] LABS: INTERNATIONAL NORMALIZED RATIO 1.11 (0.93-1.1); PROTHROMBIN TIME 11.4 Seconds (9.6-11.5)
[2017-09-27 05:34] LABS: ANION GAP 9 mmol/L (5-15); CALCIUM 9.3 mg/dL (8.5-10.1); CHLORIDE 109 mmol/L (98-107)
[2017-09-27 05:36] LABS: CREATININE 0.91 mg/dL (0.55-1.02)
[2017-09-27] MEDS: LEVOTHYROXINE 88 MCG TABLET PO SCH (06:14)
[2017-09-27 06:55] VITALS: BP 158/83
[2017-09-27] MEDS: LACTOBACILLUS CHEW TABLET PO SCH ×3 (08:15→21:45)
[2017-09-27] MEDS: PANTOPROZOLE 40MG TABLET PO SCH (08:15)
[2017-09-27] MEDS: GABAPENTIN 300 MG CAPSULE PO SCH ×2 (08:15→21:45)
[2017-09-27] MEDS: CITALOPRAM 20 MG TABLET PO SCH (08:15)
[2017-09-27] MEDS: MAGNESIUM OXIDE 400 MG TABLET PO SCH ×2 (08:15→21:45)
[2017-09-27 12:55] VITALS: BP 127/73
[2017-09-27 13:50] VITALS: BP 132/79
[2017-09-27] MEDS: CEFTRIAXONE PMX 1GM/50ML 50 ML IV SCH (14:30)
[2017-09-27] MEDS ORDERED: THROMBIN 5,000 UNIT VIAL TP ONE (14:43)
[2017-09-27] MEDS ORDERED: BUPIVACAINE/PF 0.5% ONE (14:43)
[2017-09-27] MEDS ORDERED: VANCOMYCIN 1,000 MG ONE (14:43)
[2017-09-27] MEDS ORDERED: EPINEPHRINE 1 MG/ML, 1ML ONE (14:44)
[2017-09-27] MEDS ORDERED: BACITRACIN 50,000 UNIT ONE (14:44)
[2017-09-27] MEDS ORDERED: MIDAZOLAM 1 MG/ML, 2ML ONE (17:20)
[2017-09-27] MEDS ORDERED: FENTANYL PF 250 MCG/5ML ONE (17:24)
[2017-09-27] MEDS ORDERED: PROPOFOL 150 ML ONE (17:24)
[2017-09-27] MEDS ORDERED: PROPOFOL 10 MG/ML, 50ML ONE (17:32)
[2017-09-27] MEDS ORDERED: METOPROLOL 1 MG/ML, 5ML IV PRN (18:30)
[2017-09-27] MEDS ORDERED: ALBUTEROL SULFATE 2.5 MG/3 ML NPPB PRN (18:30)
[2017-09-27] MEDS ORDERED: hydrALAzine 20 MG/ML, 1ML IV PRN (18:30)
[2017-09-27] MEDS ORDERED: ACETAMINOPHEN 325 MG TABLET PO PRN (18:30)
[2017-09-27] MEDS ORDERED: OXYcodone 5 MG/5 ML ORAL.SOL UDC PO PRN (18:30)
[2017-09-27] MEDS ORDERED: LABETALOL 5MG/ML, 20ML IV PRN (18:30)
[2017-09-27] MEDS ORDERED: EPHEDRINE 50 MG/ML, 1ML IVPush PRN (18:30)
[2017-09-27] MEDS ORDERED: HYDROmorphone 1 MG/ML, 1ML IV PRN (18:30)
[2017-09-27] MEDS ORDERED: morphine SULFATE 10 MG/ML, 1ML IV PRN (18:30)
[2017-09-27] MEDS ORDERED: DIAZEPAM 5 MG/ML, 2ML IVPush PRN (18:30)
[2017-09-27] MEDS ORDERED: ONDANSETRON 2MG/ML, 2ML IVPush PRN (18:30)
[2017-09-27] MEDS ORDERED: SUCCINYLCHOLINE 20 MG/ML, 10ML ONE (19:43)
[2017-09-27] MEDS ORDERED: CEFAZOLIN 1,000 MG ONE ×2 (19:43)
[2017-09-27] MEDS ORDERED: ONDANSETRON 2MG/ML, 2ML ONE (19:43)
[2017-09-27] MEDS ORDERED: DEXAMETHASONE 4 MG/ML, 1ML ONE ×2 (19:43)
[2017-09-27] MEDS ORDERED: HYDROcodone/APAP 5/325 TABLET PO PRN (20:00)
[2017-09-27] MEDS ORDERED: HYDROcodone/APAP 10/325 MG TABLET PO PRN (20:00)
[2017-09-27] MEDS ORDERED: morphine SULFATE 10 MG/ML, 1ML IVPush PRN (20:00)
[2017-09-27] MEDS ORDERED: PHARMACY MAY ADJ FOR RENAL FX MC PRN (20:00)
[2017-09-27] MEDS ORDERED: OXYcodone 5 MG/5 ML ORAL.SOL UDC ONE (20:19)
[2017-09-27] MEDS ORDERED: ACETAMINOPHEN 650 MG/20.3 ML UDC ONE (20:19)
[2017-09-27] MEDS ORDERED: FENTANYL PF 100 MCG/2ML ONE (20:19)
[2017-09-27] MEDS: FENTANYL PF 100 MCG/2ML IV PRN ×2 (20:29→20:34)
[2017-09-27] MEDS ORDERED: HYDROmorphone 2 MG/ML, 1ML ONE (20:36)
[2017-09-27 21:30] VITALS: BP 127/72
[2017-09-27] MEDS: METHOCARBAMOL 750 MG TABLET PO PRN (21:45)
[2017-09-27 23:26] VITALS: BP 124/67
[2017-09-28] MEDS: CEFAZOLIN PMX 1GM/50ML 50 ML IVPB SCH ×2 (01:17→11:04)
[2017-09-28 03:36] VITALS: BP 116/57
[2017-09-28] MEDS: SODIUM CHLORIDE 0.9% 1,000 ML IV SCH ×3 (05:11→22:13)
[2017-09-28] MEDS: OXYcodone/APAP 5/325MG TABLET PO PRN ×4 (05:15→20:33)
[2017-09-28] MEDS: LEVOTHYROXINE 88 MCG TABLET PO SCH (05:59)
[2017-09-28] MEDS: METHOCARBAMOL 750 MG TABLET PO PRN ×2 (05:59→22:13)
[2017-09-28 06:02] LABS: ALBUMIN 2.9 g/dL (3.4-5.0); ANION GAP 9 mmol/L (5-15); BASOPHILS % (AUTO) 0 % (0-1); CALCIUM 8.9 mg/dL (8.5-10.1); CHLORIDE 108 mmol/L (98-107); EOSINOPHILS % (AUTO) 0 % (1-7); LYMPHOCYTES # (AUTO) 0.63 x10^3/uL (1-3.4); LYMPHOCYTES % (AUTO) 6 % (22-44); MD NO; MEAN CORPUSCULAR HEMOGLOBIN 32.9 pg (27.0-34.8); MEAN CORPUSCULAR HGB CONC 33.6 g/dL (32.4-35.8); MEAN CORPUSCULAR VOLUME 97.9 fL (80-100); MEAN PLATELET VOLUME 8.8 fL (7.4-10.4); MONOCYTES # (AUTO) 0.73 x10^3/uL (0.2-0.8); MONOCYTES % (AUTO) 6 % (2-9); NEUTROPHILS % (AUTO) 88 % (42-75); PLATELET COUNT 258 x10^3/uL (130-400); RED CELL DISTRIBUTION WIDTH 13.1 % (9.6-15.2)
[2017-09-28 06:07] LABS: ALANINE AMINOTRANSFERASE 14 U/L (12-78); ALKALINE PHOSPHATASE 55 U/L (45-117); BILIRUBIN,TOTAL 0.4 mg/dL (0.2-1.0); TOTAL PROTEIN 6.4 g/dL (6.4-8.2)
[2017-09-28] MEDS ORDERED: OXYcodone 5 MG/5 ML ORAL.SOL UDC PO PRN (07:00)
[2017-09-28] MEDS ORDERED: MAGNESIUM SULFATE PMX 4GM/100M 100 ML IV ONE (08:00)
[2017-09-28 08:08] VITALS: BP 102/52
[2017-09-28] MEDS: GABAPENTIN 300 MG CAPSULE PO SCH ×2 (10:03→20:33)
[2017-09-28] MEDS: LACTOBACILLUS CHEW TABLET PO SCH ×3 (10:03→20:33)
[2017-09-28] MEDS: PANTOPROZOLE 40MG TABLET PO SCH (10:03)
[2017-09-28] MEDS: MAGNESIUM OXIDE 400 MG TABLET PO SCH ×2 (10:03→20:33)
[2017-09-28] MEDS: CITALOPRAM 20 MG TABLET PO SCH (10:03)
[2017-09-28 12:49] VITALS: BP 98/45
[2017-09-28] MEDS: CEFTRIAXONE PMX 1GM/50ML 50 ML IV SCH (15:10)
[2017-09-28] MEDS ORDERED: ENOXAPARIN 30 MG/0.3 ML SQ SCH (18:00)
[2017-09-28 19:47] VITALS: BP 128/79
[2017-09-29] VITALS (8 sets, daily range): BP systolic 99–119; BP diastolic 50–61
[2017-09-29] MEDS: OXYcodone/APAP 5/325MG TABLET PO PRN ×5 (01:10→20:26)
[2017-09-29] MEDS: SODIUM CHLORIDE 0.9% 1,000 ML IV SCH (05:22)
[2017-09-29 05:28] LABS: MEAN CORPUSCULAR HEMOGLOBIN 33.4 pg (27.0-34.8); MEAN PLATELET VOLUME 8.6 fL (7.4-10.4); PLATELET COUNT 222 x10^3/uL (130-400); RED BLOOD COUNT 2.33 x10^6/uL (3.82-5.3); RED CELL DISTRIBUTION WIDTH 13.4 % (9.6-15.2)
[2017-09-29 05:40] LABS: ALANINE AMINOTRANSFERASE 13 U/L (12-78); ALBUMIN 2.7 g/dL (3.4-5.0); ANION GAP 5 mmol/L (5-15); CALCIUM 8.3 mg/dL (8.5-10.1); CHLORIDE 110 mmol/L (98-107); CREATININE 1.18 mg/dL (0.55-1.02)
[2017-09-29 05:43] LABS: ALKALINE PHOSPHATASE 55 U/L (45-117); BILIRUBIN,TOTAL 0.3 mg/dL (0.2-1.0); TOTAL PROTEIN 5.9 g/dL (6.4-8.2)
[2017-09-29 06:06] LABS: BASOPHILS # (AUTO) 0.03 x10^3/uL (0-0.1); BASOPHILS % (AUTO) 0 % (0-1); EOSINOPHILS # (AUTO) 0.03 x10^3/uL (0-0.4); EOSINOPHILS % (AUTO) 0 % (1-7); LYMPHOCYTES # (AUTO) 1.45 x10^3/uL (1-3.4); LYMPHOCYTES % (AUTO) 14 % (22-44); MD SCAN; MONOCYTES # (AUTO) 1.38 x10^3/uL (0.2-0.8); MONOCYTES % (AUTO) 13 % (2-9); NEUTROPHILS # (AUTO) 7.45 x10^3/uL (1.8-6.8); NEUTROPHILS % (AUTO) 72 % (42-75)
[2017-09-29] MEDS: METHOCARBAMOL 750 MG TABLET PO PRN ×2 (06:08→14:24)
[2017-09-29] MEDS: LEVOTHYROXINE 88 MCG TABLET PO SCH (06:09)
[2017-09-29] MEDS ORDERED: POTASSIUM PHOSPHATE 44 MEQ in SODIUM CHLORIDE 0.9% 500 ML IV ONE (07:30)
[2017-09-29] MEDS ORDERED: MAGNESIUM SULFATE 1 GM in SODIUM CHLORIDE 0.9% 50 ML IV ONE (07:30)
[2017-09-29] MEDS ORDERED: ENOXAPARIN 30 MG/0.3 ML SQ SCH (08:00)
[2017-09-29] MEDS: MAGNESIUM OXIDE 400 MG TABLET PO SCH ×2 (08:44→20:25)
[2017-09-29] MEDS: LACTOBACILLUS CHEW TABLET PO SCH ×3 (08:44→20:25)
[2017-09-29] MEDS: CITALOPRAM 20 MG TABLET PO SCH (08:45)
[2017-09-29] MEDS: GABAPENTIN 300 MG CAPSULE PO SCH ×2 (08:45→20:25)
[2017-09-29] MEDS: PANTOPROZOLE 40MG TABLET PO SCH (08:45)
[2017-09-29] MEDS: CEFTRIAXONE PMX 1GM/50ML 50 ML IV SCH (14:24)
[2017-09-29] MEDS ORDERED: ENOXAPARIN 40 MG/0.4 ML SQ SCH (18:00)
[2017-09-30] VITALS (7 sets, daily range): BP systolic 107–139; BP diastolic 51–71
[2017-09-30] MEDS: METHOCARBAMOL 750 MG TABLET PO PRN (04:27)
[2017-09-30] MEDS: OXYcodone/APAP 5/325MG TABLET PO PRN ×5 (04:28→23:31)
[2017-09-30] MEDS: LEVOTHYROXINE 88 MCG TABLET PO SCH (05:03)
[2017-09-30 05:26] LABS: ALANINE AMINOTRANSFERASE 14 U/L (12-78); ALBUMIN 2.7 g/dL (3.4-5.0); ANION GAP 4 mmol/L (5-15); CALCIUM 8.6 mg/dL (8.5-10.1); CHLORIDE 109 mmol/L (98-107); CREATININE 1.08 mg/dL (0.55-1.02)
[2017-09-30 05:28] LABS: ALKALINE PHOSPHATASE 58 U/L (45-117); BILIRUBIN,TOTAL 0.4 mg/dL (0.2-1.0); TOTAL PROTEIN 6.1 g/dL (6.4-8.2)
[2017-09-30 05:30] LABS: BASOPHILS # (AUTO) 0.04 x10^3/uL (0-0.1); BASOPHILS % (AUTO) 1 % (0-1); EOSINOPHILS # (AUTO) 0.18 x10^3/uL (0-0.4); EOSINOPHILS % (AUTO) 2 % (1-7); LYMPHOCYTES % (AUTO) 19 % (22-44); MD NO; MEAN CORPUSCULAR HEMOGLOBIN 31.3 pg (27.0-34.8); MEAN CORPUSCULAR HGB CONC 32.8 g/dL (32.4-35.8); MEAN CORPUSCULAR VOLUME 95.5 fL (80-100); MEAN PLATELET VOLUME 8.6 fL (7.4-10.4); MONOCYTES # (AUTO) 1.12 x10^3/uL (0.2-0.8); MONOCYTES % (AUTO) 14 % (2-9); NEUTROPHILS # (AUTO) 5.31 x10^3/uL (1.8-6.8); NEUTROPHILS % (AUTO) 64 % (42-75); PLATELET COUNT 253 x10^3/uL (130-400); RED BLOOD COUNT 2.68 x10^6/uL (3.82-5.3); RED CELL DISTRIBUTION WIDTH 14.6 % (9.6-15.2)
[2017-09-30] MEDS ORDERED: GABAPENTIN 100 MG CAPSULE ONE (09:46)
[2017-09-30] MEDS: GABAPENTIN 300 MG CAPSULE PO SCH ×2 (09:55→22:10)
[2017-09-30] MEDS: LACTOBACILLUS CHEW TABLET PO SCH ×3 (09:55→22:10)
[2017-09-30] MEDS: PANTOPROZOLE 40MG TABLET PO SCH (09:56)
[2017-09-30] MEDS: CITALOPRAM 20 MG TABLET PO SCH (09:56)
[2017-09-30] MEDS: MAGNESIUM OXIDE 400 MG TABLET PO SCH ×2 (09:56→22:10)
[2017-09-30] MEDS ORDERED: CEFD300C37 PO (10:17)
[2017-09-30] MEDS ORDERED: GABA300C10 PO (10:17)
[2017-09-30] MEDS ORDERED: OXYC1TAB7 PO (10:17)
[2017-09-30] MEDS ORDERED: METH750T2 PO (10:17)
[2017-09-30] MEDS ORDERED: ERGO500017 PO (10:17)
[2017-09-30] MEDS ORDERED: POLY17PO5 PO (11:55)
[2017-09-30] MEDS ORDERED: ACET325T14 PO (11:56)
[2017-09-30] MEDS: ERGOCALCIFEROL 50,000 UNIT CAPSULE PO SCH (12:11)
[2017-09-30] MEDS: CEFTRIAXONE PMX 1GM/50ML 50 ML IV SCH (14:14)
[2017-09-30] MEDS ORDERED: HEPARIN 25,000 UNITS/500ML PMX 500 ML IV PRN (16:00)
[2017-09-30] MEDS ORDERED: GADOBUTROL 10 MMOL/10 ML PFS ONE (16:26)
[2017-10-01] VITALS: BP 155/60
[2017-10-01] MEDS: OXYcodone/APAP 5/325MG TABLET PO PRN ×4 (03:55→21:15)
[2017-10-01] MEDS: LEVOTHYROXINE 88 MCG TABLET PO SCH (06:12)
[2017-10-01 06:52] VITALS: BP 139/62
[2017-10-01] MEDS: GABAPENTIN 300 MG CAPSULE PO SCH ×2 (08:24→21:16)
[2017-10-01] MEDS: PANTOPROZOLE 40MG TABLET PO SCH (08:24)
[2017-10-01] MEDS: MAGNESIUM OXIDE 400 MG TABLET PO SCH ×2 (08:24→21:16)
[2017-10-01] MEDS: LACTOBACILLUS CHEW TABLET PO SCH ×3 (08:24→21:16)
[2017-10-01] MEDS: CITALOPRAM 20 MG TABLET PO SCH (08:24)
[2017-10-01 11:55] LABS: BASOPHILS # (AUTO) 0.02 x10^3/uL (0-0.1); BASOPHILS % (AUTO) 0 % (0-1); EOSINOPHILS # (AUTO) 0.27 x10^3/uL (0-0.4); EOSINOPHILS % (AUTO) 3 % (1-7); LYMPHOCYTES # (AUTO) 1.63 x10^3/uL (1-3.4); LYMPHOCYTES % (AUTO) 20 % (22-44); MD NO; MEAN CORPUSCULAR HEMOGLOBIN 32.4 pg (27.0-34.8); MEAN CORPUSCULAR HGB CONC 33.9 g/dL (32.4-35.8); MEAN CORPUSCULAR VOLUME 95.7 fL (80-100); MEAN PLATELET VOLUME 9.2 fL (7.4-10.4); MONOCYTES # (AUTO) 0.99 x10^3/uL (0.2-0.8); MONOCYTES % (AUTO) 12 % (2-9); NEUTROPHILS # (AUTO) 5.44 x10^3/uL (1.8-6.8); NEUTROPHILS % (AUTO) 65 % (42-75); PLATELET COUNT 307 x10^3/uL (130-400); RED BLOOD COUNT 2.93 x10^6/uL (3.82-5.3); RED CELL DISTRIBUTION WIDTH 14.4 % (9.6-15.2)
[2017-10-01 12:03] LABS: ALBUMIN 2.8 g/dL (3.4-5.0); ANION GAP 7 mmol/L (5-15); CALCIUM 9.1 mg/dL (8.5-10.1); CHLORIDE 106 mmol/L (98-107)
[2017-10-01 12:07] LABS: ALANINE AMINOTRANSFERASE 15 U/L (12-78); ALKALINE PHOSPHATASE 69 U/L (45-117); BILIRUBIN,TOTAL 0.5 mg/dL (0.2-1.0); CREATININE 1.19 mg/dL (0.55-1.02); TOTAL PROTEIN 6.4 g/dL (6.4-8.2)
[2017-10-01 13:04] VITALS: BP 126/62
[2017-10-01] MEDS ORDERED: MAGNESIUM SULFATE 6 GM in SODIUM CHLORIDE 0.9% 150 ML IV ONE (13:30)
[2017-10-01] MEDS: CEFTRIAXONE PMX 1GM/50ML 50 ML IV SCH (14:12)
[2017-10-01] MEDS: POTASSIUM PHOSPHATE 44 MEQ in SODIUM CHLORIDE 0.9% 500 ML IV SCH ×2 (14:14→19:30)
[2017-10-01 20:32] VITALS: BP 127/66
[2017-10-01] MEDS: APIXABAN 5 MG TABLET PO SCH (21:16)
[2017-10-02 02:48] VITALS: BP 138/76
[2017-10-02] MEDS: OXYcodone/APAP 5/325MG TABLET PO PRN ×4 (04:28→16:15)
[2017-10-02] MEDS: METHOCARBAMOL 750 MG TABLET PO PRN (04:28)
[2017-10-02] MEDS: POTASSIUM PHOSPHATE 44 MEQ in SODIUM CHLORIDE 0.9% 500 ML IV SCH (04:39)
[2017-10-02 05:19] LABS: BASOPHILS # (AUTO) 0.05 x10^3/uL (0-0.1); BASOPHILS % (AUTO) 1 % (0-1); EOSINOPHILS # (AUTO) 0.26 x10^3/uL (0-0.4); EOSINOPHILS % (AUTO) 3 % (1-7); LYMPHOCYTES # (AUTO) 1.62 x10^3/uL (1-3.4); LYMPHOCYTES % (AUTO) 19 % (22-44); MD NO; MEAN CORPUSCULAR HGB CONC 33.5 g/dL (32.4-35.8); MEAN CORPUSCULAR VOLUME 95.5 fL (80-100); MEAN PLATELET VOLUME 8.3 fL (7.4-10.4); MONOCYTES # (AUTO) 0.89 x10^3/uL (0.2-0.8); MONOCYTES % (AUTO) 11 % (2-9); NEUTROPHILS # (AUTO) 5.62 x10^3/uL (1.8-6.8); NEUTROPHILS % (AUTO) 67 % (42-75); PLATELET COUNT 394 x10^3/uL (130-400); RED BLOOD COUNT 3.19 x10^6/uL (3.82-5.3); RED CELL DISTRIBUTION WIDTH 14.1 % (9.6-15.2)
[2017-10-02 05:25] LABS: CHLORIDE 102 mmol/L (98-107)
[2017-10-02 05:32] LABS: ALANINE AMINOTRANSFERASE 17 U/L (12-78); ALKALINE PHOSPHATASE 80 U/L (45-117); ANION GAP 8 mmol/L (5-15); BILIRUBIN,TOTAL 0.5 mg/dL (0.2-1.0); CALCIUM 9.3 mg/dL (8.5-10.1); CREATININE 1.05 mg/dL (0.55-1.02); TOTAL PROTEIN 7.2 g/dL (6.4-8.2)
[2017-10-02] MEDS: LEVOTHYROXINE 88 MCG TABLET PO SCH (06:09)
[2017-10-02 07:10] VITALS: BP 144/76
[2017-10-02] MEDS: APIXABAN 5 MG TABLET PO SCH (09:00)
[2017-10-02] MEDS: PANTOPROZOLE 40MG TABLET PO SCH (09:00)
[2017-10-02] MEDS: GABAPENTIN 300 MG CAPSULE PO SCH (09:00)
[2017-10-02] MEDS: CITALOPRAM 20 MG TABLET PO SCH (09:00)
[2017-10-02] MEDS: MAGNESIUM OXIDE 400 MG TABLET PO SCH (09:01)
[2017-10-02] MEDS: LACTOBACILLUS CHEW TABLET PO SCH (09:01)
[2017-10-02] MEDS ORDERED: APIX5TAB PO (10:19)
[2017-10-02] MEDS: CEFTRIAXONE PMX 1GM/50ML 50 ML IV SCH (14:00)
[2017-10-02 14:20] VITALS: BP 133/79
== END 2017-10-02 16:15 | DRG 459 ==
LOC: ED 17:28 → EDIP 17:29 → ED 17:58 → 4NOR 19:15
PROVIDERS: ADMIT Family Medicine; ATTEND Internal Medicine
PROC: 0T9B70Z Drainage of Bladder with Drainage Device, Via Natural or Artificial Opening (ICD-10-PCS; 2017-09-22)
PROC: 0SG0071 Fusion of Lumbar Vertebral Joint with Autologous Tissue Substitute, Posterior Approach, Posterior Column, Open Approach (ICD-10-PCS; 2017-09-27)
PROC: 4A1134G Monitoring of Peripheral Nervous Electrical Activity, Intraoperative, Percutaneous Approach (ICD-10-PCS; 2017-09-27)
PROC: 01NB0ZZ Release Lumbar Nerve, Open Approach (ICD-10-PCS; principal; 2017-09-27 17:30)
PROC: 30233N1 Transfusion of Nonautologous Red Blood Cells into Peripheral Vein, Percutaneous Approach (ICD-10-PCS; 2017-09-29)
DX: M48.061 Spinal stenosis, lumbar region without neurogenic claudication (principal); N17.0 Acute kidney failure with tubular necrosis; N39.0 Urinary tract infection, site not specified; I82.431 Acute embolism and thrombosis of right popliteal vein; B96.20 Unspecified Escherichia coli [E. coli] as the cause of diseases classified elsewhere; E11.9 Type 2 diabetes mellitus without complications; D64.9 Anemia, unspecified; M43.16 Spondylolisthesis, lumbar region; E03.9 Hypothyroidism, unspecified; I10 Essential (primary) hypertension; E55.9 Vitamin D deficiency, unspecified; E78.5 Hyperlipidemia, unspecified; G89.29 Other chronic pain; K21.9 Gastro-esophageal reflux disease without esophagitis; M54.42 Lumbago with sciatica, left side; Z79.01 Long term (current) use of anticoagulants; Z85.118 Personal history of other malignant neoplasm of bronchus and lung; Z87.891 Personal history of nicotine dependence; Z88.8 Allergy status to other drugs, medicaments and biological substances; Z91.02 Food additives allergy status
CPT/HCPCS: 36415; 70553; 71045; 72100; 76770; 80048; 80053; 81001; 82040; 82306; 82330; 82550; 83605; 83735; 83970; 84100; 84443; 85014; 85018; 85025; 85520; 85610; 86850; 86900; 86923; 87040; 87077; 87086; 87186; 93005; 93970; 99285; A9585; J0171; J0690; J0696; J1100; J1170; J1644; J1650; J2250; J2405; J2704; J3010; J3370; J3475; J3490; J0330; J0360; J7030; J7040; P9016

== ENCOUNTER 2017-12-01 14:43 | Emergency (ER) | payer MEDICARE ==
[~2017-12-01] VITALS: Ht 172.7 cm; Wt 85.6 kg
[~2017-12-01 14:43] MED LIST changes: +ACET325T14 PO; +APIX5TAB PO; +ERGO500017 PO; +METH750T2 PO; +OXYC1TAB7 PO; +POLY17PO5 PO
[2017-12-01] MEDS ORDERED: SODIUM CHLORIDE FLUSH 10ML SYR IVF ONE (15:30)
[2017-12-01] MEDS ORDERED: SODIUM CHLORIDE 0.9% 1,000ML IVBOLUS ONE (15:30)
[2017-12-01 15:36] LABS: BASOPHILS # (AUTO) 0.04 x10^3/uL (0-0.1); BASOPHILS % (AUTO) 1 % (0-1); EOSINOPHILS # (AUTO) 0.18 x10^3/uL (0-0.4); EOSINOPHILS % (AUTO) 3 % (1-7); LYMPHOCYTES # (AUTO) 2.01 x10^3/uL (1-3.4); LYMPHOCYTES % (AUTO) 28 % (22-44); MD NO; MEAN CORPUSCULAR HEMOGLOBIN 30.8 pg (27.0-34.8); MEAN CORPUSCULAR HGB CONC 32.6 g/dL (32.4-35.8); MEAN CORPUSCULAR VOLUME 94.5 fL (80-100); MEAN PLATELET VOLUME 8.8 fL (7.4-10.4); MONOCYTES # (AUTO) 0.69 x10^3/uL (0.2-0.8); MONOCYTES % (AUTO) 10 % (2-9); NEUTROPHILS % (AUTO) 59 % (42-75); PLATELET COUNT 274 x10^3/uL (130-400); RED BLOOD COUNT 3.69 x10^6/uL (3.82-5.3); RED CELL DISTRIBUTION WIDTH 14.5 % (9.6-15.2)
[2017-12-01 15:39] LABS: INTERNATIONAL NORMALIZED RATIO 1.13 (0.93-1.1); PROTHROMBIN TIME 11.6 Seconds (9.6-11.5)
[2017-12-01 15:43] LABS: ALANINE AMINOTRANSFERASE 17 U/L (12-78); ALBUMIN 4.3 g/dL (3.4-5.0); ANION GAP 5 mmol/L (5-15); CALCIUM 10.5 mg/dL (8.5-10.1); CHLORIDE 107 mmol/L (98-107); CREATININE 1.18 mg/dL (0.55-1.02)
[2017-12-01 15:45] LABS: ALKALINE PHOSPHATASE 69 U/L (45-117); BILIRUBIN,TOTAL 0.4 mg/dL (0.2-1.0)
[2017-12-01] MEDS ORDERED: VIT D3 (19:08)
[2017-12-01 20:50] VITALS: BP 138/74
== END 2017-12-01 21:15 | disposition home or self-care (01) ==
LOC: ED 17:45
DX: K92.2 Gastrointestinal hemorrhage, unspecified (principal); E11.9 Type 2 diabetes mellitus without complications; I10 Essential (primary) hypertension; M54.30 Sciatica, unspecified side; K92.1 Melena
CPT/HCPCS: 36415; 74176; 80053; 85025; 85610; 86850; 86900; 93005; 99285